=== PATIENT | female | born 1965 | race Caucasian/White ===

== ENCOUNTER → 2018-12-02 | Outpatient (CLI) | payer OTHER ==
[~2018-12-02] VITALS: Ht 165.1 cm; Wt 75.7 kg
--- NOTE | 2018-12-02 11:46 | Diagnostic Imaging Report ---
PROCEDURE: US Thyroid. TECHNIQUE: Multiple real-time grayscale images were obtained of the thyroid in various projections. INDICATION: Enlarged thyroid. COMPARISON: No prior studies are available for comparison. FINDINGS: The right lobe of the thyroid measures 4.7 x 1.9 x 1.6 cm and the left lobe measures 6.6 x 3.9 x 4.2 cm. Bilateral thyroid masses are identified. Largest mass on the right is located in the lower pole measuring approximately 1.5 x 1.3 x 1.1 cm. There appears to be a large solid mass with some internal cystic changes occupying the majority of the left lobe of the thyroid. IMPRESSION: Bilateral thyroid masses. The dominant mass involves the entire left lobe. Fine-needle aspiration could be performed. Dictated by: Dictated on workstation # [id number]
--- NOTE | 2018-12-02 15:41 | Diagnostic Imaging Report ---
INDICATION: Thyroid mass. FINDINGS: Sonographic guidance was provided for Dr. Boss for a left thyroid FNA. A total of 3 passes were made by Dr[address] Boss into the left lobe mass. IMPRESSION: Ultrasound guidance for Dr. Boss for a left thyroid FNA. Dictated by: Dictated on workstation # [id number]
== END ==
LOC: RAD 10:18
PROVIDERS: ATTEND Otolaryngology Otolaryngology/Facial Plastic Surgery
DX: E04.9 Nontoxic goiter, unspecified (principal); E07.89 Other specified disorders of thyroid
CPT/HCPCS: 76536; 76942